=== PATIENT | male | born 2000 | race Caucasian/White ===

== ENCOUNTER 2021-01-21 15:56 | Emergency (ER) | payer SELFPAY ==
[2021-01-21 15:58] VITALS: BP 151/74; PULSE 125; RESP 16; O2SAT 96; BMI 25.0
--- NOTE | 2021-01-21 17:24 | ECG_ITS ---
[facility] Test Date: 2021-01-21 Pat Name: Juan Moore Department: Room: Gender: Male Curriculum Developer: : 2000 Requested By: Ayala Garcia I Order Number: [id number] Pavan MD: Gigi Rahman M.D. Measurements Intervals Simms Rate: 112 P: 64 AZ: 144 QRS: 73 QRSD: 90 T: 51 QT: 302 QTc: 413 Interpretive Statements SINUS TACHYCARDIA POSSIBLE RIGHT VENTRICULAR CONDUCTION DELAY [RSR (QR) IN V1/V2] No previous ECG available for comparison Electronically Signed On 01-21-2021 21:47:18 CDT by Gigi Rahman M.D. [id number]
--- NOTE | 2021-01-21 17:29 | XRR_ITS ---
PROCEDURE INFORMATION: Exam: XR Chest Exam date and time: 01/21/2021 5:36 PM Age: 20 years old Clinical indication: Patient HX: Chest pain. Drug use; Additional info: Cp TECHNIQUE: Imaging protocol: XR of the chest. Views: 1 view. COMPARISON: No relevant prior studies available. FINDINGS: The lungs are clear of infiltrate. There are no pleural effusions or pneumothorax. The heart size and pulmonary vascularity are normal. XR/XR chest 1V portable [id number] IMPRESSION: No active disease.
--- NOTE | 2021-01-21 17:48 | ED_ITS ---
HPI - Chest Pain General: Chief Complaint: Chest Pain Stated Complaint: DRUG USE/ CHEST PAIN Time Seen by Provider: 01/21/21 16:16 Source: patient Mode of arrival: EMS Limitations: no limitations History of Present Illness: HPI narrative: Patient is a 20-year-old male with no significant past medical history who was brought into the emergency department for evaluation of chest pain. The patient states that his short of some methamphetamines today after being sober for 5 days. He states that chest pain started shortly after shooting up methamphetamines about 2 hours ago. He denies any shortness of breath, denies radiation of the pain. He is unable to tell me where he hurts in his chest. The patient is not very cooperative and initially refused to sign consent to treat, declined blood work and EKG. I was able to eventually convince him to have these done. complaint: chest pain Onset (ago): hour(s) (2) Timing of current episode: constant Prior episodes: No Onset: associated with drug use Pain radiation: none Severity: moderate Quality: aching Relieving factors: nothing Exacerbating factors: nothing Associated symptoms: Deny abdominal pain, diaphoresis, dyspnea, fever(s), leg edema, nausea, palpitations, sense of impending doom, syncope or vomiting Treatment prior to arrival: none Review of Systems General: Reports: 10 or more systems reviewed and unremarkable except in HPI and below Const: Denies: fever(s) or diaphoresis Card: Denies: palpitations or syncope Resp: Denies: dyspnea GI: Denies: abdominal pain, nausea or vomiting Physical Exam Const: COMMON NORMALS: no acute distress, average body habitus, patient oriented x3, no limitations, healthy appearing, alert and well nourished HENMT: COMMON NORMALS: normocephalic, atraumatic and moist oral mucous membranes HEAD & SCALP: normocephalic and atraumatic Neck/C-Spine: COMMON NORMALS: no meningeal signs and no JVD Chest: COMMONS NORMALS: normal inspection of the chest and normal palpation of entire chest wall Resp: COMMON NORMALS: normal respiratory effort, No retractions, No use of accessory muscles, clear to auscultation bilaterally and percussion normal AU SCULTATION: clear to auscultation bilaterally PERCUSSION: percussion normal Cardio: COMMON NORMALS: no JVD, regular rhythm, S1 normal heart sound present, S2 normal heart sound present, No gallops present (Cardio), No clicks present (Cardio), No murmurs present (Cardio), No rub (Cardio) and Peripheral pulses 2+ throughout RATE: tachycardic RHYTHM: regular rhythm HEART SOUNDS: S1 normal heart sound present and S2 normal heart sound present PERIPHERAL PULSES: Peripheral pulses 2+ throughout GI: COMMON NORMALS: Normal to inspection, nondistended, normoactive bowel sounds present, Soft to palpation, non-tender, No hepatosplenomegaly present, no masses and no bruits PALPATION: Yes Soft to palpation and Yes No hepatosplenomegaly present Extremity: COMMON NORMALS: normal to inspection, full ROM, capillary refill normal, no calf tenderness and no pedal edema RIGHT UPPER EXTREMITY: Yes lower arm Right lower arm: Yes inspection (track anderson noted on proximal forearm, with swelling noted. No redness) and Yes palpation (tender to palpation) Neuro: COMMON NORMALS: patient oriented x3 SENSORIUM/ORIENTATION: Yes alert MENINGEAL SIGNS: Yes no meningeal signs Skin: COMMON NORMALS: no rashes or lesions noted, no wounds, turgor normal, no jaundice, no petechiae and no mottling GENERAL SKIN EXAM: no rashes or lesions noted and turgor normal Course Reevaluation(s): Reevaluation #1: Discussed his lab and imaging findings with him. Negative for acute findings. Advised that we will give him antibiotics for prophylaxis to prevent infection at the injection sites. He voiced understanding and is in agreement with the plan. Time: 19:13 Vital Signs: Vital signs: Vital Signs Pulse Rate 125 H 01/21/21 15:58 Respiratory Rate 16 01/21/21 15:58 Blood Pressure 151/74 01/21/21 15:58 Pulse Oximetry 96 01/21/21 15:58 MDM - Chest Pain MDM Narrative: Medical decision making narrative: 20-year-old male who developed chest pain shortly after injecting methamphetamines. Evaluation in the emergency department is unremarkable. He is discharged home with prophylactic antibiotic to prevent an abscess at the injection site. Troponin was negative. Medical Records: Attestation: I reviewed the patient's medical records. Lab Data: Attestation: I reviewed the patient's lab results. Labs: Lab Results 05/14/21 05/14/21 05/14/21 Range/Units 18:07 18:07 18:07 WBC 11.4 H (4.0-10.0) 10^3/ uL RBC 5.52 H (4.1-5.3) 10^6/u L Hgb 15.4 (11.7-16.6) g/dL Hct 47.2 (42.0-52.0) % MCV 85.5 (80-94) fL MCH 27.9 L (28.0-34.0) pg MCHC 32.6 (30.0-36.0) g/dL RDW 14.1 (12.1-15.1) % Plt Count 497 H (130-400) 10^3/c mm MPV 7.9 (7.4-10.4) fL Neut % (Auto) 56.9 % Lymph % (Auto) 32.3 % Gulf % (Auto) 9.4 % Eos % (Auto) 0.7 % Baso % (Auto) 0.5 % Neut # (Auto) 6.52 (1.8-7.7) 10^3/u L Lymph # (Auto) 3.7 (0.8-4.8) 10^3/u L Gulf # (Auto) 1.1 H (0.2-0.9) 10^3/u L Eos # (Auto) 0.1 (0.0-0.8) 10^3/u L Baso # (Auto) 0.1 (0.0-0.1) 10^3/u L Nucleated RBC % (a uto) 0 % Nucleated RBCs # 0.0 /100WBC Sodium 137 (136-145) mmol/L Potassium 4.3 (3.5-5.1) mmol/L Chloride 97 L (98-107) mmol/L Carbon Dioxide 25 (22-29) mmol/L Anion Gap 19.3 H (5-19) BUN 21 H (6-20) mg/dL Creatinine 1.0 (0.7-1.2) mg/dL GFR Calculation 93.4 (90-130) mL/min Glucose 94 (65-115) mg/dL Calculated Osmolal ity 287 (285-295) mOsm/k g Calcium 9.9 (8.5-10.5) mg/dL Total Bilirubin 0.5 (0.15-1.2) mg/dL AST 30 (0-40) U/L ALT 19 (0-41) U/L Alkaline Phosphata se 130 (40-130) IU/L Troponin T Baselin e 9 (0-15) ng/L NT-Pro-B Natriuret Pep 31 (0-125) pg/mL Total Protein 8.4 (6.6-8.7) g/dL Albumin 5.1 (3.5-5.2) g/dL Globulin 3.3 (1.3-4.6) g/dL Urine Color (Yellow) Urine Appearance (CLEAR) Urine pH (5-7) Ur Specific Gravit y (1.005-1.030) Urine Protein (Negative) Urine Glucose (UA) (Normal) Urine Ketones (Negative) Urine Blood (Negative) Urine Nitrate (Negative) Urine Bilirubin (Negative) Urine Urobilinogen (Negative) mg/dL Ur Leukocyte Cynthia ase (Negative) 01/21/21 Range/Units 18:07 WBC (4.0-10.0) 10^3/ uL RBC (4.1-5.3) 10^6/u L Hgb (11.7-16.6) g/dL Hct (42.0-52.0) % MCV (80-94) fL MCH (28.0-34.0) pg MCHC (30.0-36.0) g/dL RDW (12.1-15.1) % Plt Count (130-400) 10^3/c mm MPV (7.4-10.4) fL Neut % (Auto) % Lymph % (Auto) % Gulf % (Auto) % Eos % (Auto) % Baso % (Auto) % Neut # (Auto) (1.8-7.7) 10^3/u L Lymph # (Auto) (0.8-4.8) 10^3/u L Gulf # (Auto) (0.2-0.9) 10^3/u L Eos # (Auto) (0.0-0.8) 10^3/u L Baso # (Auto) (0.0-0.1) 10^3/u L Nucleated RBC % (a uto) % Nucleated RBCs # /100WBC Sodium (136-145) mmol/L Potassium (3.5-5.1) mmol/L Chloride (98-107) mmol/L Carbon Dioxide (22-29) mmol/L Anion Gap (5-19) BUN (6-20) mg/dL Creatinine (0.7-1.2) mg/dL GFR Calculation (90-130) mL/min Glucose (65-115) mg/dL Calculated Osmolal ity (285-295) mOsm/k g Calcium (8.5-10.5) mg/dL Total Bilirubin (0.15-1.2) mg/dL AST (0-40) U/L ALT (0-41) U/L Alkaline Phosphata se (40-130) IU/L Troponin T Baselin e (0-15) ng/L NT-Pro-B Natriuret Pep (0-125) pg/mL Total Protein (6.6-8.7) g/dL Albumin (3.5-5.2) g/dL Globulin (1.3-4.6) g/dL Urine Color Yellow (Yellow) Urine Appearance Clear (CLEAR) Urine pH 5 (5-7) Ur Specific Gravit y 1.025 (1.005-1.030) Urine Protein Neg (Negative) Urine Glucose (UA) Norm (Normal) Urine Ketones 1+ H (Negative) Urine Blood Neg (Negative) Urine Nitrate Negative (Negative) Urine Bilirubin Neg (Negative) Urine Urobilinogen 1 H (Negative) mg/dL Ur Leukocyte Cynthia ase Negative (Negative) Imaging Data^: CXR: Attestation: I personally reviewed and interpreted this imaging study as follows: Radiologist's impression: [place] [id number] 75XRay ReportSigned Patient: Paul Moore #: [id number]: 2000Acct#:[id number]/Sex: 20 / MADM Date: 01/21/21Loc: ERRoom/Bed:Attending Dr: Ordering Provider/Ordering MD: Ayala Garcia [place] [facility] [place]: 01[place]21[place] Procedure(s): XR chest 1V portable [id number] Accession Number(s): [id number] Report Number: [id number] PROCEDURE INFORMATION: Exam: XR Chest Exam date and time: 01/21/2021 5:36 PM Age: 20 years old Clinical indication: Patient HX: Chest pain. Drug use; Additional info: Cp TECHNIQUE: Imaging protocol: XR of the chest. Views: 1 view. COMPARISON: No relevant prior studies available. FINDINGS: The lungs are clear of infiltrate. There are no pleural effusions or pneumothorax. The heart size and pulmonary vascularity are normal. XR/XR chest 1V portable [id number] IMPRESSION: No active disease. Dictated By:Mert Velasco MDSigned By:Mert Velasco MDSigned Date/Time:01/21/211844DD/ 42 EKG Data^: EKG 1: Attestation: I personally reviewed and interpreted this EKG as follows: EKG interpretation date: 01/21/21 EKG interpretation time: 18:27 Prior EKG tracings: not available for review Interpretation: Sinus tachycardia. Heart rate [address] changes. Discharge Plan Discharge Patient Disposition: Home Clinical Impression: Non-cardiac chest pain, Methamphetamine use Condition: Stable Prescriptions: New cephalexin 500 mg capsule 500 mg PO Q8H 7 Days Qty: 21 RF: 0 Continued Priotein See Rx Instructions .ROUTE .COMPLEX RF: 0 Discharge Orders: Discharge ED (Routine); Ordered 01/21/21 Ordered By: Ayala Garcia Discharge Diet: Usual diet Discharge Activity: Resume usual activity Patient Instructions: Methamphetamine Abuse (ED), Noncardiac Chest Pain (ED) Activity Restrictions/Additional Instructions: Return for any new or worsening symptoms. Follow-up with your primary care provider within 3 days. Take the antibiotic as prescribed to prevent infection at the site were injected yourself. Coding Level of Care Code ED Grocery Stocker for Annabelleg Fwd Exam Comprehensive
[2021-01-21 18:13] LABS: Basophils # 0.1 10^3/uL (0.0-0.1); Basophils % 0.5 %; Eosinophils # 0.1 10^3/uL (0.0-0.8); Eosinophils % 0.7 %; Hematocrit 47.2 % (42.0-52.0); Hemoglobin 15.4 g/dL (11.7-16.6); Lymphocytes # 3.7 10^3/uL (0.8-4.8); Lymphocytes % 32.3 %; Mean Corpuscular HGB Conc 32.6 g/dL (30.0-36.0); Mean Corpuscular Hemoglobin 27.9 pg (28.0-34.0); Mean Corpuscular Volume 85.5 fL (80-94); Mean Platelet Volume 7.9 fL (7.4-10.4); Monocytes # 1.1 10^3/uL (0.2-0.9); Monocytes % 9.4 %; Neutrophils # 6.52 10^3/uL (1.8-7.7); Neutrophils % 56.9 %; Nucleated Red Blood Cells % 0 %; Platelet Count 497 10^3/cmm (130-400); Red Blood Count 5.52 10^6/uL (4.1-5.3); Red Cell Distribution Width 14.1 % (12.1-15.1); White Blood Count 11.4 10^3/uL (4.0-10.0)
[2021-01-21 18:20] LABS: Add Urine Microscopic? NO; Charge for UA Resulting for Rev
[2021-01-21 18:23] LABS: Urine Appearance Clear (CLEAR); Urine Color Yellow (Yellow); pH Urine 5 (5-7)
[2021-01-21 18:24] LABS: Bilirubin Urine Neg (Negative); Blood Urine Neg (Negative); Glucose Urine UA Norm (Normal); Ketones Urine 1+ (Negative); Leukocyte Esterase Urine Negative (Negative); Nitrate Urine Negative (Negative); Protein Urine Neg (Negative); Specific Gravity, Urine 1.025 (1.005-1.030); Urobilinogen Urine 1 mg/dL (Negative)
[2021-01-21 18:35] LABS: Troponin(5th) Baseline 9 ng/L (0-15)
[2021-01-21 18:43] LABS: Alanine Aminotransferase 19 U/L (0-41); Albumin Level 5.1 g/dL (3.5-5.2); Alkaline Phosphatase 130 IU/L (40-130); Anion Gap 19.3 (5-19); Aspartate Amino Transferase 30 U/L (0-40); Blood Urea Nitrogen 21 mg/dL (6-20); Calcium 9.9 mg/dL (8.5-10.5); Carbon Dioxide 25 mmol/L (22-29); Chloride 97 mmol/L (98-107); Globulin 3.3 g/dL (1.3-4.6); Glomerular Filtration Rate 93.4 mL/min (90-130); Glucose 94 mg/dL (65-115); NT Pro B Type Natriuretic Pept 31 pg/mL (0-125); Osmolality Calculated 287 mOsm/kg (285-295); Potassium 4.3 mmol/L (3.5-5.1); Sodium 137 mmol/L (136-145); Total Bilirubin 0.5 mg/dL (0.15-1.2); Total Protein 8.4 g/dL (6.6-8.7)
[2021-01-21] MEDS: cephALEXin 500 mg Capsule PO (19:52)
== END 2021-01-21 16:50 | disposition home or self-care (01) ==
PROVIDERS: Emergency Provider Family Medicine
DX: R07.89 Other chest pain (principal); F15.90 Other stimulant use, unspecified, uncomplicated
CPT/HCPCS: 71045; 80053; 81003; 83880; 84484; 85025; 93005; 99283